=== PATIENT | female | born 1985 | race Caucasian/White ===

== ENCOUNTER 2019-07-13 14:05 | Emergency (ER) | payer BC, MEDICAID, SELFPAY ==
[2019-07-13 14:10] VITALS: BP 169/109; PULSE 116; RESP 16; TEMP 36.9; O2SAT 100; BMI 24.8
--- NOTE | 2019-07-13 14:24 | ED_ITS ---
Entered by Ange Esquivel, acting as scribe for Rima Guzman MD Jul 13, 2019 14:05 HPI - Chest Pain General: Chief Complaint: Chest Pain Stated Complaint: CHEST TIGHTNESS Time Seen by Provider: 07/13/19 14:23 Source: patient and RN notes reviewed Mode of arrival: ambulatory Limitations: no limitations History of Present Illness: HPI narrative: 33 yo female presents to ED with complaints of chest pain. The patient states while at work today she first began experiencing dizziness (expressed as feeling outside of my body ), nauseated, short of breath, and L sided chest pain. She said it then went to chest tightness. 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 She was diagnosed with an irregular heartbeat and a heart murmur when she was a child (again, by Dr Bhatti). She said her current PCP (Dr Villalobos - last seen diagnosed her with high blood pressure. She states she has a little caffeine daily with one fruit flavored energy drink daily and one green tea drink daily. She denies cold and flu symptoms within the last 24 hrs. She states she has been getting lightheaded, feeling weighted down weak lately. complaint: chest pain Pertinent past history: other (heart murmur, HTN, born with a hole in her heart (now resolved)) Onset (ago): hour(s) (2 (1300)) Timing of current episode: episodic and now resolved Prior episodes: No Onset: during exertion Pain location: left chest Pain radiation: none Severity: mild Quality: tightness Relieving factors: rest Exacerbating factors: exertion Context: recent illness (flu 1 week ago) Associated symptoms: Reports dyspnea and nausea; Deny fever(s) Risk Factors: Coronary artery disease risk factors: hypertension Thoracic aortic dissection risk factors: none Review of Systems General: Reports: 10 or more systems reviewed and unremarkable except in HPI and below Const: Denies: fever or chills Card: Denies: chest pain Resp: Reports: shortness of breath GI: Reports: nausea : Denies: difficulty urinating Musc: Denies: muscle weakness Skin/Breast: Denies: rash Neuro: Denies: headache Endo: Denies: excessive urination Darren/Lymph: Denies: easy bruising or easy bleeding PFSH ED PFSH: Social History Smoking and tobacco status: never smoked Female Reproductive History: Date of last menstrual period: 07/12/19 Physical Exam Const: COMMON NORMALS: no apparent distress, oriented x3, alert and well nourished HENMT: COMMON NORMALS: normocephalic and external nose normal HEAD & SCALP: normocephalic NOSE: external nose normal MOUTH: no trismus Eye: COMMON NORMALS: EOMs intact bilaterally and conjunctivae normal CONJUNCTIVA: Yes conjunctivae normal Neck/C-Spine: COMMON NORMALS: full ROM, no lymphadenopathy and supple CERVICAL SPINE: Yes cervical ROM normal Lymph: LYMPHATIC: no lymphadenopathy noted Resp: COMMON NORMALS: normal respiratory effort, no retractions, no use of accessory muscles and clear to auscultation bilaterally EFFORT & INSPECTION: Yes able to speak in complete sentences AUSCULTATION: clear to auscultation bilaterally Cardio: COMMON NORMALS: regular rate and regular rhythm RATE: regular rate and tachycardic RHYTHM: regular rhythm HEART SOUNDS: murmur (2/6) GI: COMMON NORMALS: normal to inspection, nondistended, normoactive bowel sounds, soft to palpation, non-tender and no masses INSPECTION: Yes normal to inspection AUSCULTATION: Yes normoactive bowel sounds PALPATION: Yes soft, No guarding and No rigid Back/Pelvis: OTHER: Normal range of motion Extremity: GENERAL: Yes normal exam except as noted Neuro: COMMON NORMALS: oriented x3 and CN's II-XII intact bilaterally SENSORIUM/ORIENTATION: Yes alert SPEECH: speech normal Psych: COMMON NORMALS: mental status grossly normal Skin: COMMON NORMALS: no rashes or lesions noted GENERAL SKIN EXAM: no rashes or lesions noted Course Vital Signs: Vital signs: Vital Signs Temperature 98.4 F 07/13/19 14:10 Pulse Rate 79 07/13/19 15:28 Respiratory Rate 13 07/13/19 15:28 Blood Pressure 145/100 07/13/19 15:28 Pulse Oximetry 100 07/13/19 15:28 MDM - Chest Pain MDM Narrative: Medical decision making narrative: 33-year-old female with sudden onset palpitations and increased heart rate. 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 She denies being anxious for any other reason then possibly being stressed at work. Denies any increased caffeine use or supplements. Lab and EKG was performed an EKG was obtained from her PCPs office for comparison. Patient had normal vital signs at discharge and refused Zofran after we talked about it I decided to just go home and continue to drink water. I updated her on her lab results including her glucose which was high at 200 and potassium which was slightly decreased because of her hyperventilating when she initially arrived. She does not have a history of anxiety or drug use. Recommended continuing to eat healthy exercise drink plenty of water as she is and try to get close to 8 hours asleep if possible. Also strongly recommended she follow-up with her primary care doctor for further evaluation since she is young and already has a history of hypertension and irregular heartbeat per her history to me. I did do a urine drug screen which was negative as anticipated because of her symptoms and presentation. Lab Data: Labs: Lab Results 07/13/19 07/13/19 07/13/19 Range/Units 14:35 14:35 14:35 WBC 4.7 (4.0-10.0) 10^3/ uL RBC 5.15 (4.1-5.3) 10^6/u L Hgb 13.3 (11.5-15.3) g/dL Hct 41.9 (37.0-47.0) % MCV 81.4 (81-99) fL MCH 25.8 L (28.0-34.0) pg MCHC 31.7 (30.0-36.0) g/dL RDW 13.7 (12.1-15.1) % Plt Count 299 (130-400) 10^3/c mm MPV 9.6 (7.4-10.4) fL Neut % (Auto) 41.5 % Lymph % (Auto) 47.8 % [place] % (Auto) 9.1 % Eos % (Auto) 0.6 % Baso % (Auto) 0.8 % Neut # (Auto) 2.0 (1.8-7.7) 10^3/u L Lymph # (Auto) 2.3 (0.8-4.8) 10^3/u L [place] # (Auto) 0.4 (0.2-0.9) 10^3/u L Eos # (Auto) 0.0 (0.0-0.8) 10^3/u L Baso # (Auto) 0.0 (0.0-0.1) 10^3/u L Nucleated RBC % (a uto) 0 % Nucleated RBCs # 0.0 /100WBC D-Dimer <= 0.27 (0-0.59) ug/mIFE U Sodium 136 (136-145) mmol/L Potassium 3.1 L (3.5-5.1) mmol/L Chloride 99 (98-107) mmol/L Carbon Dioxide 20 L (22-29) mmol/L Anion Gap 20.1 H (5-19) BUN 10 (6-20) mg/dL Creatinine 0.7 (0.5-0.9) mg/dL GFR Calculation 97.0 (90-130) mL/min Glucose 201 H (65-115) mg/dL Calculated Osmolal ity 284 L (285-295) mOsm/k g Calcium 10.0 (8.5-10.5) mg/dL Total Bilirubin 0.4 (0.15-1.2) mg/dL AST 22 (0-32) U/L ALT 13 (0-33) U/L Alkaline Phosphata se 85 (35-105) IU/L Troponin T Baselin e (0-10) ng/mL Total Protein 8.2 (6.6-8.7) g/dL Albumin 4.7 (3.5-5.2) g/dL Globulin 3.5 (1.3-4.6) g/dL TSH 2.18 (0.27-4.20) uIU/ mL Urine Color (Yellow) Urine Appearance (CLEAR) Urine pH (5-7) Ur Specific Gravit y (1.005-1.030) Urine Protein (Negative) Urine Glucose (UA) (Normal) Urine Ketones (Negative) Urine Blood (Negative) Urine Nitrate (Negative) Urine Bilirubin (NEGATIVE) Urine Urobilinogen (Negative) mg/dL Ur Leukocyte Marichuy ase (Negative) Urine Opiates Scre en (Negative) ng/mL Ur Barbiturates Sc reen (Negative) ng/mL Ur Phencyclidine S crn (Negative) ng/mL Ur Amphetamines Sc reen (Negative) ng/mL U Benzodiazepines Scrn (Negative) ng/mL Urine Cocaine Scre en (Negative) ng/mL U Marijuana (THC) Screen (Negative) ng/mL 07/13/19 07/13/19 07/13/19 Range/Units 14:35 15:05 15:05 WBC (4.0-10.0) 10^3/ uL RBC (4.1-5.3) 10^6/u L Hgb (11.5-15.3) g/dL Hct (37.0-47.0) % MCV (81-99) fL MCH (28.0-34.0) pg MCHC (30.0-36.0) g/dL RDW (12.1-15.1) % Plt Count (130-400) 10^3/c mm MPV (7.4-10.4) fL Neut % (Auto) % Lymph % (Auto) % [place] % (Auto) % Eos % (Auto) % Baso % (Auto) % Neut # (Auto) (1.8-7.7) 10^3/u L Lymph # (Auto) (0.8-4.8) 10^3/u L [place] # (Auto) (0.2-0.9) 10^3/u L Eos # (Auto) (0.0-0.8) 10^3/u L Baso # (Auto) (0.0-0.1) 10^3/u L Nucleated RBC % (a uto) % Nucleated RBCs # /100WBC D-Dimer (0-0.59) ug/mIFE U Sodium (136-145) mmol/L Potassium (3.5-5.1) mmol/L Chloride (98-107) mmol/L Carbon Dioxide (22-29) mmol/L Anion Gap (5-19) BUN (6-20) mg/dL Creatinine (0.5-0.9) mg/dL GFR Calculation (90-130) mL/min Glucose (65-115) mg/dL Calculated Osmolal ity (285-295) mOsm/k g Calcium (8.5-10.5) mg/dL Total Bilirubin (0.15-1.2) mg/dL AST (0-32) U/L ALT (0-33) U/L Alkaline Phosphata se (35-105) IU/L Troponin T Baselin e 6 (0-10) ng/mL Total Protein (6.6-8.7) g/dL Albumin (3.5-5.2) g/dL Globulin (1.3-4.6) g/dL TSH (0.27-4.20) uIU/ mL Urine Color Colorless (Yellow) Urine Appearance Clear (CLEAR) Urine pH 7 (5-7) Ur Specific Gravit y 1.005 (1.005-1.030) Urine Protein Neg (Negative) Urine Glucose (UA) Trace H (Normal) Urine Ketones 1+ H (Negative) Urine Blood Neg (Negative) Urine Nitrate Negative (Negative) Urine Bilirubin Neg (NEGATIVE) Urine Urobilinogen Norm (Negative) mg/dL Ur Leukocyte Marichuy ase Negative (Negative) Urine Opiates Scre en Negative (Negative) ng/mL Ur Barbiturates Sc reen Negative (Negative) ng/mL Ur Phencyclidine S crn Negative (Negative) ng/mL Ur Amphetamines Sc reen Negative (Negative) ng/mL U Benzodiazepines Scrn Negative (Negative) ng/mL Urine Cocaine Scre en Negative (Negative) ng/mL U Marijuana (THC) Screen Negative (Negative) ng/mL Imaging Data^: CXR: Radiologist's impression: [place] [address] XRay Report Signed Patient: Munir Funes #: [id number] : 1985Acct#:[id number] Age/Sex: 33 / FADM Date: 07/13/19 Loc: ERRoom/Bed: Attending Dr: Ordering Provider/Ordering MD: Rima Guzman MD Date of Service: 07/13/19 Procedure(s): XR chest 1V portable [id number] Accession Number(s): [id number] Report Number: [id number] WS: [id number] Portable AP upright chest, 07/13/2019 Clinical Data: cp Comparison: None. Findings: No nodules, masses or effusions are seen. The heart is normal. The pulmonary vascularity is not increased. No pneumonia or pneumothorax is seen. Monitor leads are on the chest wall. The patient's clothing obscures only minimal detail in the central portion of the chest. XR/XR chest 1V portable [id number] Impression: Negative chest. Dictated By:Sari Tian MD Signed By:Sari Tian MDSigned Date/Time:07/13/19 1458 DD/ EKG Data^: EKG 1: Attestation: I personally reviewed and interpreted this EKG as follows: EKG interpretation date: 07/13/19 EKG interpretation time: 14:21 Prior EKG tracings: available for review Interpretation: Sinus rhythm rate [address] abnormality with normal [place] interval. Compared to EKG April 2018 unchanged. Discharge Plan Discharge Patient Disposition: Home, Self-Care Clinical Impression: Chest pain Qualifiers: Chest pain type: unspecified Qualified Code(s): R07.9 - Chest pain, unspecified Condition: Stable Prescriptions: New Zofran 4 mg tablet 4 mg PO TID PRN (Reason: nausea and vomiting) 3 Days Qty: 10 RF: 0 No Action lovastatin 10 mg tablet 10 mg PO BEDTIME RF: 0 hydrochlorothiazide 12.5 mg capsule 12.5 mg PO DAILY RF: 0 lisinopril 5 mg tablet 5 mg PO DAILY RF: 0 aspirin 325 mg Tablet 325 mg PO PRN PRN (Reason: Chest Pain) RF: 0 ibuprofen 200 mg Tablet 200 mg PO Q6H PRN (Reason: Pain) RF: 0 Child Chewable Vitamn Complete 18 mg iron Tablet,Chewable 18 mg PO DAILY RF: 0 Referrals: Bronwyn Villalobos MD [Family Provider] - Patient Instructions: Chest Pain (ED) Activity Restrictions/Additional Instructions: Be sure to follow-up with your primary care provider as we discussed. Your glucose here in the ER was 200. Try to make sure that you get at least 8 hours of sleep a night if possible and continue to drink plenty of water and eat healthfully. Return to the ER if any emergent problems or concerns, we are happy to evaluate you. 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
--- NOTE | 2019-07-13 14:27 | ECG_ITS ---
Measurements Intervals [place] Rate: 86 P: 52 IN: 144 QRS: 35 QRSD: 93 T: 61 QT: 292 QTc: 350 SINUS RHYTHM WITH SINUS ARRHYTHMIA NONSPECIFIC ST & T-WAVE ABNORMALITY No previous ECG available for comparison Electronically Signed On 07-13-2019 19:34:17 CDT by Hubert Cole M.D. [email or web address]
--- NOTE | 2019-07-13 14:27 | XR_ITS ---
WS: [id number] Portable AP upright chest, 07/13/2019 Clinical Data: cp Comparison: None. Findings: No nodules, masses or effusions are seen. The heart is normal. The pulmonary vascularity is not increased. No pneumonia or pneumothorax is seen. Monitor leads are on the chest wall. The patien t's clothing obscures only minimal detail in the central portion of the chest. XR/XR chest 1V portable [id number] Impression: Negative chest.
[2019-07-13 14:40] LABS: Basophils % 0.8 %; Eosinophils % 0.6 %; Hematocrit 41.9 % (37.0-47.0); Hemoglobin 13.3 g/dL (11.5-15.3); Lymphocytes # 2.3 10^3/uL (0.8-4.8); Lymphocytes % 47.8 %; Mean Corpuscular HGB Conc 31.7 g/dL (30.0-36.0); Mean Corpuscular Hemoglobin 25.8 pg (28.0-34.0); Mean Corpuscular Volume 81.4 fL (81-99); Mean Platelet Volume 9.6 fL (7.4-10.4); Monocytes # 0.4 10^3/uL (0.2-0.9); Monocytes % 9.1 %; Neutrophils % 41.5 %; Nucleated Red Blood Cells % 0 %; Platelet Count 299 10^3/cmm (130-400); Red Blood Count 5.15 10^6/uL (4.1-5.3); Red Cell Distribution Width 13.7 % (12.1-15.1); White Blood Count 4.7 10^3/uL (4.0-10.0)
[2019-07-13 14:55] LABS: D Dimer <= 0.27 ug/mIFEU (0-0.59)
[2019-07-13 15:03] LABS: Troponin(5th) Baseline 6 ng/mL (0-10)
[2019-07-13 15:11] LABS: Alanine Aminotransferase 13 U/L (0-33); Albumin Level 4.7 g/dL (3.5-5.2); Alkaline Phosphatase 85 IU/L (35-105); Anion Gap 20.1 (5-19); Aspartate Amino Transferase 22 U/L (0-32); Blood Urea Nitrogen 10 mg/dL (6-20); Carbon Dioxide 20 mmol/L (22-29); Chloride 99 mmol/L (98-107); Globulin 3.5 g/dL (1.3-4.6); Glucose 201 mg/dL (65-115); Osmolality Calculated 284 mOsm/kg (285-295); Potassium 3.1 mmol/L (3.5-5.1); Sodium 136 mmol/L (136-145); Thyroid Stimulating Hormone 2.18 uIU/mL (0.27-4.20); Total Bilirubin 0.4 mg/dL (0.15-1.2); Total Protein 8.2 g/dL (6.6-8.7)
[2019-07-13 15:22] LABS: Add Urine Microscopic? NO
[2019-07-13 15:28] VITALS: BP 145/100; PULSE 79; RESP 13; O2SAT 100
[2019-07-13 15:43] LABS: Urine Appearance Clear (CLEAR); Urine Color Colorless (Yellow); pH Urine 7 (5-7)
[2019-07-13 15:44] LABS: Bilirubin Urine Neg (NEGATIVE); Blood Urine Neg (Negative); Glucose Urine UA Trace (Normal); Ketones Urine 1+ (Negative); Leukocyte Esterase Urine Negative (Negative); Nitrate Urine Negative (Negative); Protein Urine Neg (Negative); Specific Gravity, Urine 1.005 (1.005-1.030); Urobilinogen Urine Norm (Negative)
[2019-07-13 15:52] LABS: Amphetamines Screen Urine Negative (Negative); Barbiturates Screen Urine Negative (Negative); Benzodiazepines Screen Urine Negative (Negative); Cocaine Screen Urine Negative (Negative); Opiate Screen Urine Negative (Negative); PCP Screen Urine Negative (Negative); THC Screen Urine Negative (Negative)
[2019-07-13 16:09] VITALS: BP 140/89; PULSE 73; RESP 14; O2SAT 97
== END 2019-07-13 16:09 | disposition home or self-care (01) ==
PROVIDERS: Emergency Provider Emergency Medicine; Family Provider Family Medicine
DX: R07.9 Chest pain, unspecified (principal); I10 Essential (primary) hypertension
CPT/HCPCS: 12345; 36415; 71045; 80053; 80307; 81003; 84443; 84484; 85025; 85378; 93005; 99282; 99284; A9270

== ENCOUNTER 2019-07-14 23:45 | Emergency (ER) | payer BC, MEDICAID, SELFPAY ==
[2019-07-14 23:53] VITALS: BP 140/90; PULSE 88; RESP 16; TEMP 36.9; O2SAT 98; BMI 25.4
--- NOTE | 2019-07-15 00:40 | W.ED.ANXIETY ---
HPI - Anxiety General: Chief Complaint: Anxiety Stated Complaint: anxiety Time Seen by Provider: 07/15/19 00:39 Source: patient Mode of arrival: ambulatory Limitations: no limitations History of Present Illness: HPI narrative: Patient comes in today with concerns of sleeplessness. 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 Patient appears well. Patient appears anxious and upset. Patient was started on escitalopram and alprazolam today for this increased stress. Patient appears in no pain. Provoking factors: work/job stress Review of Systems General: Reports: 10 or more systems reviewed and unremarkable except in HPI and below Psych: Reports: anxiety PFSH ED PFSH: Social History Smoking and tobacco status: former smoker Female Reproductive History: Date of last menstrual period: 07/12/19 Physical Exam Const: COMMON NORMALS: no apparent distress and oriented x3 GENERAL APPEARANCE: cooperative HENMT: COMMON NORMALS: normocephalic, external ears normal, EAC's normal, TM's normal bilaterally and external nose normal HEAD & SCALP: normal to inspection and normocephalic FACE & SINUS: normal facial exam NOSE: external nose normal GENERAL EAR: hearing not grossly impaired EXTERNAL EAR: Yes external ears normal EXTERNAL AUDITORY CANAL: EAC's normal TYMPANIC MEMBRANE: TM's normal bilaterally MOUTH: oral and palatal mucosa normal THROAT: posterior oropharynx normal Eye: COMMON NORMALS: PERRL and EOMs intact bilaterally PUPIL: Yes PERRL Neck/C-Spine: COMMON NORMALS: full ROM and no lymphadenopathy Lymph: LYMPHATIC: no lymphedema noted Chest: COMMONS NORMALS: inspection of chest normal and palpation of chest normal Resp: COMMON NORMALS: normal respiratory effort and clear to auscultation bilaterally AUSCULTATION: clear to auscultation bilaterally Cardio: COMMON NORMALS: regular rate and regular rhythm RATE: regular rate RHYTHM: regular rhythm GI: COMMON NORMALS: normal to inspection, nondistended, normoactive bowel sounds and non-tender : COMMON NORMALS: Yes no CVA tenderness BLADDER/KIDNEY EXAM: Yes no CVA tenderness Back/Pelvis: COMMON NORMALS: no CVA tenderness and thoracic and lumbar spine normal to inspection Extremity: COMMON NORMALS: normal to inspection GENERAL: No edema Neuro: COMMON NORMALS: oriented x3, moves all extremities and no focal motor deficits Psych: COMMON NORMALS: thought process normal and speech normal APPEARANCE: Yes grossly normal ACTIVITY/MOTOR BEHAVIOR: Yes appropriate eye contact SPEECH: Yes normal speech MOOD & AFFECT: Yes anxious THOUGHT PROCESS: normal thought process Skin: COMMON NORMALS: no rashes or lesions noted GENERAL SKIN EXAM: no rashes or lesions noted Course Vital Signs: Vital signs: Vital Signs Temperature 98.4 F 07/14/19 23:53 Pulse Rate 70 07/15/19 00:58 Respiratory Rate 14 07/15/19 00:58 Blood Pressure 109/69 07/15/19 00:58 Pulse Oximetry 99 07/15/19 00:58 MDM - Anxiety MDM Narrative: Medical decision making narrative: Patient comes in today with increased anxiety and difficulty sleeping. Patient denies suicidal or homicidal thought. Exam notes normal vital signs. 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 Differential diagnosis includes anxiety, insomnia, situational or adjustment disorder. I will give patient a 5 mg Ambien for tonight to see if that will help with her sleeplessness. Patient just started on the escitalopram which has not had any effect so far for patient's anxiety or depression. Patient describes a situational problem at work that is probably amending to most of patients difficulties with sleeping. Patient agreed to recommendations at this time and will follow-up with primary care in the morning for further medication. Discharge Plan Discharge Patient Disposition: Home, Self-Care Clinical Impression: Insomnia Qualifiers: Insomnia type: unspecified Qualified Code(s): G47.00 - Insomnia, unspecified Condition: Stable Prescriptions: No Action lovastatin 10 mg tablet 10 mg PO BEDTIME RF: 0 hydrochlorothiazide 12.5 mg capsule 12.5 mg PO DAILY RF: 0 lisinopril 5 mg tablet 5 mg PO DAILY RF: 0 aspirin 325 mg Tablet 325 mg PO PRN PRN (Reason: Chest Pain) RF: 0 ibuprofen 200 mg Tablet 200 mg PO Q6H PRN (Reason: Pain) RF: 0 Child Chewable Vitamn Complete 18 mg iron Tablet,Chewable 18 mg PO DAILY RF: 0 Zofran 4 mg tablet 4 mg PO TID PRN (Reason: nausea and vomiting) 3 Days Qty: 10 RF: 0 Discharge Orders: Discharge Order (Routine); Ordered 07/15/19 Ordered By: Cuba Yuen Referrals: Wilfredo,Bronwyn M, MD [Family Provider] - Discharge Diet: Usual diet Discharge Activity: Increase activity as tolerated Patient Instructions: Insomnia (ED) Activity Restrictions/Additional Instructions: Drink plenty of water Activity as tolerated Work on relaxation techniques Follow-up with primary care tomorrow Return to ER as needed Coding Level of Care Code ED Senior Marketing Associate for [employer] Fwd Exam Comprehensive
--- NOTE | 2019-07-15 00:56 | PC.NURSE ---
PATIENT STATES SHE HAS BEEN FEELING ANXIOUS AND HAD A PANIC ATTACK AT WORK TWO DAYS AGO. PATIENT STATES SHE HASN'T SLEPT SINCE. PATIENT STATES SHE HAS BEEN UNDER A LOT OF STRESS LATELY AND HAS NOT BEEN ABLE TO STOP THINKING ABOUT IT.
[2019-07-15 00:58] VITALS: BP 109/69; PULSE 70; RESP 14; O2SAT 99
[2019-07-15 01:23] VITALS: BP 126/75; PULSE 82; RESP 14; O2SAT 98
[2019-07-15] MEDS: zolpidem 5 mg Tablet PO (01:24)
== END 2019-07-15 01:26 | disposition home or self-care (01) ==
PROVIDERS: Emergency Provider Nurse Practitioner Family; Family Provider Family Medicine
DX: G47.00 Insomnia, unspecified (principal); Z87.891 Personal history of nicotine dependence
CPT/HCPCS: 12345; 99281; 99282

== ENCOUNTER → 2021-03-06 08:34 | Outpatient (BNVA) | payer BC, SELFPAY | PROVIDERS: Family Provider Family Medicine; PCP Family Medicine; Visit Provider Nurse Practitioner Women's Health | DX: N93.9 Abnormal uterine and vaginal bleeding, unspecified (principal) | CPT/HCPCS: 76830 ==

== ENCOUNTER → 2021-03-13 11:53 | Outpatient (BNVA) | payer BC, SELFPAY | PROVIDERS: Family Provider Family Medicine; PCP Family Medicine; Visit Provider Nurse Practitioner Women's Health | DX: Z12.4 Encounter for screening for malignant neoplasm of cervix (principal); N93.9 Abnormal uterine and vaginal bleeding, unspecified | CPT/HCPCS: 81025; 87624; 88305 ==